=== PATIENT | male | born 1930 | race Caucasian/White ===

== ENCOUNTER 2017-12-16 09:24 | Inpatient (IN) | payer OTHER ==
[2017-12-16] VITALS (7 sets, daily range): BP systolic 97–164; BP diastolic 59–80
[~2017-12-16] VITALS: Ht 172.7 cm; Wt 87.5 kg
[~2017-12-16 09:24] MED LIST: AMLODIPINE; ASPIRIN325 MG PO; LIPITOR; LISINOPRIL; NITROGLYCERIN; PROSCAR; TICLID PO
[2017-12-16 10:18] LABS: HEMATOCRIT 40.1 % (38.0-50.0); HEMOGLOBIN 12.8 G/DL (12.5-16.6); MCH 21.5 PG (29.0-34.0); MCHC 31.9 G/DL (30.0-36.0); MCV 67.4 FL (86-99); PLATELET COUNT 308 K/uL (156-360); RBC DIS.WIDTH-CV 17.5 % (11.8-14.6); RED BLOOD COUNT 5.95 M/uL (4.00-5.50)
[2017-12-16 10:22] LABS: CHLORIDE 104 mEq/L (99-109); POTASSIUM 4.4 mEq/L (3.7-5.4); SODIUM 138 mEq/L (136-147)
[2017-12-16 10:23] LABS: GLUCOSE 109 mg/dL (70-99)
[2017-12-16 10:27] LABS: GFR ESTIMATE (CALCULATED) > 59 mL/min/ (58.99-99999)
[2017-12-16 10:28] LABS: UREA NITROGEN (BUN) 20 mg/dL (9-23)
[2017-12-16 10:34] LABS: TROP-I INTERPRETATION INDETERMINATE; TROPONIN-I 0.53 ng/mL (0.0-0.30)
[2017-12-16 11:35] LABS: PTT 32.5 SEC (25-37)
[2017-12-16] MEDS ORDERED: PANTOPRAZOLE SO40 MG PO (12:30)
[2017-12-16] MEDS ORDERED: LISINOPRIL10 MG PO (12:30)
[2017-12-16] MEDS ORDERED: AMLODIPINE BESY10 MG PO (12:31)
[2017-12-16] MEDS ORDERED: FINASTERIDE5 MG PO (12:31)
[2017-12-16] MEDS ORDERED: IMDUR60 MG PO (12:31)
[2017-12-16] MEDS ORDERED: ATORVASTATIN CA80 MG PO (12:32)
[2017-12-16] MEDS ORDERED: NITROGLYCERIN0.4 MG SL (12:32)
[2017-12-16] MEDS ORDERED: LO-DOSE ASPIRIN81 M1 PO (12:32)
[2017-12-16 18:13] LABS: PTT 44.9 SEC (25-37)
[2017-12-16 18:45] LABS: TROP-I INTERPRETATION INDETERMINATE; TROPONIN-I 0.46 ng/mL (0.0-0.30)
[2017-12-17 00:22] VITALS: BP 134/63
[2017-12-17 00:34] LABS: PTT 45.2 SEC (25-37)
[2017-12-17 00:46] LABS: TROP-I INTERPRETATION INDETERMINATE; TROPONIN-I 0.32 ng/mL (0.0-0.30)
[2017-12-17 05:21] VITALS: BP 129/60
[2017-12-17 06:42] LABS: HEMATOCRIT 36.4 % (38.0-50.0); HEMOGLOBIN 11.4 G/DL (12.5-16.6); MCHC 31.3 G/DL (30.0-36.0); MCV 67.2 FL (86-99); PLATELET COUNT 286 K/uL (156-360); RBC DIS.WIDTH-CV 16.7 % (11.8-14.6); RBC DIS.WIDTH-SD 39.1 % (39-53); RED BLOOD COUNT 5.42 M/uL (4.00-5.50); WHITE BLOOD COUNT 6.5 K/uL (4.1-10.2)
[2017-12-17 06:55] LABS: TROP-I INTERPRETATION INDETERMINATE; TROPONIN-I 0.31 ng/mL (0.0-0.30)
[2017-12-17 06:59] LABS: CHLORIDE 104 MEQ/L (99-109); CREATININE 1.1 MG/DL (0.6-1.3); GFR ESTIMATE (CALCULATED) > 59 mL/min/ (58.99-99999); GLUCOSE 103 mg/dL (70-99); POTASSIUM 4.2 MEQ/L (3.7-5.4); SODIUM 138 MEQ/L (136-147); UREA NITROGEN (BUN) 29 mg/dL (9-23)
[2017-12-17 07:11] VITALS: BP 141/65
[2017-12-17 11:19] VITALS: BP 117/58
[2017-12-17 14:41] VITALS: BP 116/58
[2017-12-17 19:30] VITALS: BP 134/66
[2017-12-18] VITALS: BP 158/72
[2017-12-18 03:51] VITALS: BP 148/70
[2017-12-18 07:22] LABS: CHLORIDE 104 MEQ/L (99-109); GFR ESTIMATE (CALCULATED) > 59 mL/min/ (58.99-99999); GLUCOSE 105 mg/dL (70-99); POTASSIUM 4.2 MEQ/L (3.7-5.4); SODIUM 140 MEQ/L (136-147); UREA NITROGEN (BUN) 21 mg/dL (9-23)
[2017-12-18 07:50] VITALS: BP 151/72
[2017-12-18 11:12] VITALS: BP 104/56
[2017-12-19 00:30] VITALS: BP 139/63
[2017-12-19 06:41] LABS: CHLORIDE 103 MEQ/L (99-109); CREATININE 1.1 MG/DL (0.6-1.3); GFR ESTIMATE (CALCULATED) > 59 mL/min/ (58.99-99999); GLUCOSE 99 mg/dL (70-99); POTASSIUM 4.1 MEQ/L (3.7-5.4); SODIUM 139 MEQ/L (136-147); UREA NITROGEN (BUN) 19 mg/dL (9-23)
== END 2017-12-19 06:42 | disposition short-term general hospital (02) | DRG 281 ==
LOC: EME 09:24 → EDOF 11:13 → 4EAST 11:13 → ENRESERV 11:14 → 4EAST 12:54
PROVIDERS: Emergency Medicine; Family Medicine; Student in an Organized Health Care Education/Training Program
PROC: 4A023N7 Measurement of Cardiac Sampling and Pressure, Left Heart, Percutaneous Approach (ICD-10-PCS; principal; 2017-12-18)
PROC: B2111ZZ Fluoroscopy of Multiple Coronary Arteries using Low Osmolar Contrast (ICD-10-PCS; principal; 2017-12-18)
PROC: B2151ZZ Fluoroscopy of Left Heart using Low Osmolar Contrast (ICD-10-PCS; principal; 2017-12-18)
PROC: 4A033BC Measurement of Arterial Pressure, Coronary, Percutaneous Approach (ICD-10-PCS; principal; 2017-12-18)
DX: I21.4 Non-ST elevation (NSTEMI) myocardial infarction (principal); T82.855A Stenosis of coronary artery stent, initial encounter; I25.110 Atherosclerotic heart disease of native coronary artery with unstable angina pectoris; K21.9 Gastro-esophageal reflux disease without esophagitis; I10 Essential (primary) hypertension; E78.5 Hyperlipidemia, unspecified; N40.0 Benign prostatic hyperplasia without lower urinary tract symptoms; I45.10 Unspecified right bundle-branch block; H35.30 Unspecified macular degeneration; Y83.1 Surgical operation with implant of artificial internal device as the cause of abnormal reaction of the patient, or of later complication, without mention of misadventure at the time of the procedure; Z87.891 Personal history of nicotine dependence; Z95.5 Presence of coronary angioplasty implant and graft; I25.2 Old myocardial infarction; Z82.49 Family history of ischemic heart disease and other diseases of the circulatory system; Z82.41 Family history of sudden cardiac death; Z79.82 Long term (current) use of aspirin; Z79.899 Other long term (current) drug therapy
CPT/HCPCS: 71046; 80048; 84484; 85027; 85347; 85610; 85730; 93005; 99281; 99285; C1769; C1887; C1894; J0153; J0461; J1644; J2250; J3010